=== PATIENT | female | born 1970 | race Two or more races ===

== ENCOUNTER 2024-09-12 08:09 | Outpatient (CLI) | payer OTHER | END 2024-09-12 08:27 | disposition home or self-care (01) | LOC: TOM 08:09 | PROVIDERS: ATTEND Orthopaedic Surgery | DX: M25.572 Pain in left ankle and joints of left foot (principal); M79.672 Pain in left foot ==

== ENCOUNTER → 2025-02-20 07:08 | Outpatient (CLI) | payer OTHER | END | disposition home or self-care (01) | LOC: LAB 07:08 | PROVIDERS: ATTEND Orthopaedic Surgery | DX: E55.9 Vitamin D deficiency, unspecified (principal); M85.9 Disorder of bone density and structure, unspecified; E56.1 Deficiency of vitamin K ==